=== PATIENT | female | born 1965 | race Caucasian/White ===

== ENCOUNTER 2021-09-13 09:55 | Outpatient (CLI) | payer MEDICARE, MEDICAID ==
[2021-09-13 11:15] LABS: BASOPHILS % (AUTO) 0.4 % (0-1); EOSINOPHILS # (AUTO) 0.1 X10'3 (0-0.9); EOSINOPHILS % (AUTO) 1.2 % (0-6); HEMATOCRIT 44.1 % (35.0-45.0); HEMOGLOBIN 15.1 g/dl (12.0-16.0); LYMPHOCYTES # (AUTO) 1.3 X10'3 (1.1-4.8); LYMPHOCYTES % (AUTO) 20.1 % (21-51); MEAN CORPUSCULAR HEMOGLOBIN 32.2 PG (27.0-31.0); MEAN CORPUSCULAR HGB CONC 34.3 g/dL (33.0-36.5); MEAN CORPUSCULAR VOLUME 94.1 FL (78-98); MEAN PLATELET VOLUME 7.4 FL (7.4-10.4); MONOCYTES # (AUTO) 0.6 X10'3 (0-0.9); MONOCYTES % (AUTO) 9.4 % (2-12); NEUTROPHILS # (AUTO) 4.4 X10'3 (1.8-7.7); NEUTROPHILS % (AUTO) 68.9 % (42-75); PLATELET COUNT 324 X10'3 (140-440); RED BLOOD COUNT 4.69 X10'6 (4.20-5.60); RED CELL DISTRIBUTION WIDTH 13.7 % (11.5-14.5); WHITE BLOOD COUNT 6.4 X10'3 (4.5-11.0)
[2021-09-13 11:47] LABS: ALANINE AMINOTRANSFERASE 24 U/L (12-78); ALBUMIN 3.9 G/DL (3.4-5.0); ALKALINE PHOSPHATASE 70 IU/L (46-116); ANION GAP 8 (8-16); ASPARTATE AMINO TRANSFERASE 28 U/L (10-37); BILIRUBIN,TOTAL 0.4 MG/DL (0.1-1.0); BLOOD UREA NITROGEN 18 MG/DL (7-18); BUN/CREATININE RATIO 19.4 (6.6-38.0); C-REACTIVE PROTEIN 0.14 MG/DL (0.0-0.5); CHLORIDE 102 MMOL/L (99-107); CREATININE 0.93 MG/DL (0.40-0.90); GLUCOSE 95 MG/DL (70-104); SODIUM 141 MMOL/L (135-145); TOTAL CARBON DIOXIDE 31.2 MMOL/L (24-32); eGFR 63 ML/MIN
[2021-09-13 12:09] LABS: RHEUM FACTOR QUAL REFLEX TITER NEGATIVE (Neg)
[2021-09-14 12:27] LABS: HEPATITIS C ANTIBODY <0.1 s/co ratio (0.0-0.9)
[2021-09-15 12:20] LABS: ANTINUCLEAR ANTIBODIES Negative (Negative)
== END 2021-09-13 23:59 | disposition home or self-care (01) ==
LOC: LAB 09:55
PROVIDERS: ATTEND Nurse Practitioner Family
DX: M17.0 Bilateral primary osteoarthritis of knee (principal); M25.50 Pain in unspecified joint; M54.50 Low back pain, unspecified; M25.559 Pain in unspecified hip; M54.2 Cervicalgia
CPT/HCPCS: 36415; 73564; 80053; 84439; 84443; 85025; 85651; 86038; 86140; 86200; 86430; 86803

== ENCOUNTER 2021-12-20 08:57 | Inpatient (IN) | payer MEDICARE, MEDICAID ==
[2021-12-12 16:34] LABS: BASOPHILS % (AUTO) 0.4 % (0-1); EOSINOPHILS # (AUTO) 0.1 X10'3 (0-0.9); EOSINOPHILS % (AUTO) 0.9 % (0-6); LYMPHOCYTES # (AUTO) 1.6 X10'3 (1.1-4.8); LYMPHOCYTES % (AUTO) 24.4 % (21-51); MEAN CORPUSCULAR HEMOGLOBIN 30.5 PG (27.0-31.0); MEAN CORPUSCULAR HGB CONC 32.9 g/dL (33.0-36.5); MEAN CORPUSCULAR VOLUME 92.5 FL (78-98); MEAN PLATELET VOLUME 7.8 FL (7.4-10.4); MONOCYTES # (AUTO) 0.6 X10'3 (0-0.9); MONOCYTES % (AUTO) 9.7 % (2-12); NEUTROPHILS # (AUTO) 4.3 X10'3 (1.8-7.7); NEUTROPHILS % (AUTO) 64.6 % (42-75); PRE OP HEMATOCRIT 44.6 % (35.0-45.0); PRE OP HEMOGLOBIN 14.7 g/dL (12.0-16.0); PRE OP PLATELET COUNT 300 X10'3 (140-440); RED BLOOD COUNT 4.83 X10'6 (4.20-5.60); RED CELL DISTRIBUTION WIDTH 13.2 % (11.5-14.5)
[2021-12-12 16:46] LABS: ALBUMIN 3.9 G/DL (3.4-5.0); ALKALINE PHOSPHATASE 82 IU/L (46-116); BLOOD UREA NITROGEN 8 MG/DL (7-18); BUN/CREATININE RATIO 11.6 (6.6-38.0); CALCIUM 9.1 MG/DL (8.5-10.1); CHLORIDE 102 MMOL/L (99-107); CREATININE 0.69 MG/DL (0.40-0.90); PRE OP ANION GAP 8 (8-16); PRE OP AST 61 U/L (10-37); PRE OP BILIRUB, TOTAL 0.4 MG/DL (0.0-1.0); PRE OP GLUCOSE 90 MG/DL (70-104); PRE OP POTASSIUM 4.1 MMOL/L (3.4-5.1); PRE OP SODIUM 140 MMOL/L (135-145); TOTAL PROTEIN 7.7 G/DL (6.4-8.2); eGFR 89 ML/MIN
[2021-12-12 16:48] LABS: PRE OP ALT 100 U/L (30-65)
[~2021-12-20] VITALS: Ht 144.8 cm; Wt 92.5 kg
[2021-12-20] VITALS (21 sets, daily range): BP systolic 116–163; BP diastolic 52–98
[2021-12-20] MEDS: ringers solution, lacted 1,000 ML IV SCH ×2 (05:00→23:25)
[~2021-12-20 08:57] MED LIST: ALBU18HF2 PO; BENZ1TAB7 PO; BUPR-353 PO; CLON1TAB13 PO; CYCL-1 PO; DEXL60CA3 PO; DOCU-342 PO; EPIN0.3P3 SQ; FLUT16SP26 BOTHNARES; FURO-150 PO; GABAPENTIN PO; HYDR-3972 PO; IBUP-1985 PO; IPRA3AMP9; KETO15CR2 TOP; LORA10TA7 PO; LURA80TA2 PO; MONT-40 PO; POTA8CAP20 PO; PSEU-259 PO; SENN-263 PO; SUMA100T16; THYR120T2 PO; THYR30TA2 PO; TRAZ-256 PO; cefazolin/dext.iso 2gm/50ml IV ONE; famotidine 20mg tablet PO ONE; sevoflurane 250ml liquid IH ONE; tetracaine 1% (10mg/ml) pres. free inj. ONE; tranexamic acid inj. 1,000 MG in 0.7% saline 100 ML PMX IV ONE; vancomycin 1,500 MG in NS 300ml IV soln IV ONE
[2021-12-20] MEDS ORDERED: ROPIVAcaine 0.5% (5mg/ml) 30ml vial ONE ×2 (09:19→13:14)
[2021-12-20] MEDS ORDERED: cloNIDine hcl/PF 100mcg/ml inj ONE (09:19)
[2021-12-20] MEDS ORDERED: ketorolac trometh. 30mg/ml inj. ONE (09:19)
[2021-12-20] MEDS ORDERED: BUPR300T53 PO (09:53)
[2021-12-20] MEDS ORDERED: MIDAZolam 1mg/ml 10ml vial ONE (11:02)
[2021-12-20] MEDS ORDERED: FENTANYL CITRATE/PF 50 MCG/1 ML VIAL ONE (11:02)
[2021-12-20] MEDS ORDERED: vancomycin 1,000mg inj ONE (11:48)
[2021-12-20] MEDS ORDERED: ringers solution, lacted 1,000 ML IV SCH (12:20)
[2021-12-20] MEDS ORDERED: meperidine/PF 25mg/ml syringe IV PRN ×3 (12:20)
[2021-12-20] MEDS ORDERED: HYDROmorphone/PF 0.2 MG/ML SYRINGE IV PRN ×2 (12:20)
[2021-12-20] MEDS ORDERED: ondansetron/PF 4mg/2ml inj IV PRN ×2 (12:20→14:30)
[2021-12-20] MEDS ORDERED: propofol inj 20 ML IV ONE (13:15)
--- NOTE | 2021-12-20 14:02 | NUR ---
Received from OR via [facility] , accompanied by Anesthesiologist JEANNE and report given by Anesthesiolgist. PATIENT WITH 20G PIV IN LEFT HAND RUNNING LR AT 20. DENIES PAIN AT THIS TIME. RIGHT FOOT WITH SPLINT ON , TOES EXPOSED. + POPLITEAL PULSE PRESENT. PATIENT WITH 10L MASK ON WITH 100% SATURATIONS. Addendum: 12/20/21 at 1419 by Mario Alberto Rolle RN, RN Amended: Links added.
--- NOTE | 2021-12-20 14:04 | NUR ---
Received from OR via BED, accompanied by Anesthesiologist DR GARCIA and report given by Anesthesiologist. PT DROWSY, DENIES PAIN, LEFT KNEE W/KNEE WRAP, ICE PACK, DRSHubert CDI. [place] CATHETER TO GRAVITY DRAINAGE W/YELLOW URINE IN DRAINAGE BAG. PT W/SAB DERMATOME LEVEL T-7, DR GARCIA AWARE. PT W/O DISTRESS. Addendum: 12/20/21 at 1513 by Dulce Odom RN Amended: Links added.
[2021-12-20] MEDS ORDERED: ipratropium/albuterol 3ml nebule IH PRN (14:25)
[2021-12-20] MEDS ORDERED: clonazePAM 1mg tablet PO PRN (14:25)
[2021-12-20] MEDS ORDERED: non-formulary drug (Bupropion Hcl (Wellbutrin Xl) 1 TABLET) PO PRN (14:25)
[2021-12-20] MEDS ORDERED: magnesium hydroxide 30ml (MOM) UD suspension PO PRN (14:30)
[2021-12-20] MEDS ORDERED: bisacodyl 10mg suppository rectal RC PRN (14:30)
[2021-12-20] MEDS ORDERED: HYDROmorphone inj. 0.5 MG/0.5 ML DISP.SYRIN IV PRN (14:30)
[2021-12-20] MEDS ORDERED: HYDROmorphone 1 mg/ml syringe IV PRN (14:30)
[2021-12-20] MEDS ORDERED: HYDROcodone/acetaminophen 10/325mg tab PO PRN (14:30)
[2021-12-20] MEDS ORDERED: diphenhydrAMINE 25mg capsule PO PRN (14:30)
[2021-12-20] MEDS ORDERED: acetaminophen 325mg tablet PO PRN (14:30)
[2021-12-20] MEDS ORDERED: albuterol 2.5 MG/3 ML nebule NEB ONE (14:40)
[2021-12-20] MEDS ORDERED: albuterol 2.5 MG/3 ML nebule NEB PRN (14:45)
--- NOTE | 2021-12-20 15:44 | NUR ---
Report called to receiving nurse. Transferred via BED, 1 BAG OF PT Belongings SENT W/PT TO ROOM 355A. RECEIVING RN AT BEDSIDE TO RECEIVE PT, BLL, CALL LIGHT GIVEN, SIDE RAILS UP X 2, DERMATOME LEVEL T-11-12. Special Issues communicated to receiving nurse. YES. Addendum: 12/20/21 at 1556 by Dulce Odom RN Amended: Links added.
[2021-12-20] MEDS: ceFAZolin/D5W- 1GM premix 50 ML IV SCH ×2 (16:34→23:37)
[2021-12-20] MEDS: potassium Cl 20mEq in NS 1,000 ML IV SCH (16:34)
--- NOTE | 2021-12-20 18:22 | NUR ---
Problems reprioritized. Patient report given, questions answered & plan of care reviewed with Prudence RN.
--- NOTE | 2021-12-20 18:51 | NUR ---
Patient in room [facility]. I have received report from FERNANDA HOWARD and had the opportunity to ask questions and assume patient care.
[2021-12-20] MEDS ORDERED: vancomycin/NS 1 GM ADD-VANTAGE 250 ML IV SCH (20:00)
[2021-12-20] MEDS: traZODone 50mg tablet PO PRN (21:11)
[2021-12-20] MEDS: sennosides 8.6mg tablet PO SCH (21:12)
[2021-12-20] MEDS: furosemide 20MG tablet PO SCH (21:12)
[2021-12-20] MEDS: gabapentin 300mg capsule PO SCH (21:12)
[2021-12-20] MEDS: cyclobenzaprine 10mg tablet PO SCH (21:12)
[2021-12-20] MEDS: potassium chloride 8mEq ER tablet PO SCH (21:12)
[2021-12-20] MEDS: montelukast 10mg tablet PO SCH (21:13)
[2021-12-20] MEDS: benztropine 1mg tablet PO SCH (21:13)
[2021-12-20] MEDS: buPROPion SR 150mg tablet PO SCH (21:13)
[2021-12-20] MEDS: HYDROcodone/acetaminophen 10/325mg tab PO PRN (23:24)
[2021-12-21] VITALS: BP 110/56
[2021-12-21] MEDS: benztropine 1mg tablet PO SCH ×4 (02:40→20:39)
[2021-12-21] MEDS: potassium Cl 20mEq in NS 1,000 ML IV SCH ×3 (03:50→20:38)
--- NOTE | 2021-12-21 06:17 | NUR ---
Problems reprioritized. Patient report given, questions answered & plan of care reviewed with FERNANDA HOWARD.
[2021-12-21 06:47] LABS: BASOPHILS % (AUTO) 0.2 % (0-1); EOSINOPHILS % (AUTO) 0.6 % (0-6); HEMATOCRIT 36.9 % (35.0-45.0); HEMOGLOBIN 12.1 g/dl (12.0-16.0); LYMPHOCYTES # (AUTO) 0.5 X10'3 (1.1-4.8); LYMPHOCYTES % (AUTO) 5.6 % (21-51); MEAN CORPUSCULAR HEMOGLOBIN 30.4 PG (27.0-31.0); MEAN CORPUSCULAR HGB CONC 32.8 g/dL (33.0-36.5); MEAN CORPUSCULAR VOLUME 92.6 FL (78-98); MONOCYTES # (AUTO) 1.1 X10'3 (0-0.9); MONOCYTES % (AUTO) 12.9 % (2-12); NEUTROPHILS % (AUTO) 80.7 % (42-75); PLATELET COUNT 242 X10'3 (140-440); RED BLOOD COUNT 3.99 X10'6 (4.20-5.60); RED CELL DISTRIBUTION WIDTH 13.3 % (11.5-14.5); WHITE BLOOD COUNT 8.7 X10'3 (4.5-11.0)
[2021-12-21] MEDS: cyclobenzaprine 10mg tablet PO SCH ×3 (07:26→20:38)
[2021-12-21] MEDS: pantoprazole 40mg Tablet.DR PO SCH (07:26)
[2021-12-21] MEDS: docusate sod 100mg capsule PO SCH (07:27)
[2021-12-21] MEDS: potassium chloride 8mEq ER tablet PO SCH ×2 (07:27→20:39)
[2021-12-21] MEDS: furosemide 20MG tablet PO SCH ×2 (07:27→20:40)
[2021-12-21] MEDS: thyroid, pork 30mg tablet PO SCH (07:28)
[2021-12-21] MEDS: gabapentin 300mg capsule PO SCH ×3 (07:28→20:38)
[2021-12-21] MEDS: buPROPion SR 150mg tablet PO SCH ×2 (07:28→20:39)
[2021-12-21] MEDS: HYDROcodone/acetaminophen 10/325mg tab PO PRN (07:29)
[2021-12-21] MEDS ORDERED: lurasidone 60mg tablet PO SCH (07:30)
[2021-12-21] MEDS: lurasidone 20mg tablet PO SCH (07:30)
[2021-12-21 07:56] LABS: ALANINE AMINOTRANSFERASE 37 U/L (12-78); ALBUMIN 2.8 G/DL (3.4-5.0); ALBUMIN/GLOBULIN RATIO 0.9 (1.1-1.5); ALKALINE PHOSPHATASE 61 IU/L (46-116); ANION GAP 4 (8-16); ASPARTATE AMINO TRANSFERASE 38 U/L (10-37); BILIRUBIN,TOTAL 0.4 MG/DL (0.1-1.0); BLOOD UREA NITROGEN 13 MG/DL (7-18); BUN/CREATININE RATIO 15.5 (6.6-38.0); CALCIUM 7.8 MG/DL (8.5-10.1); CHLORIDE 107 MMOL/L (99-107); CREATININE 0.84 MG/DL (0.40-0.90); GLUCOSE 137 MG/DL (70-104); POTASSIUM 4.9 MMOL/L (3.5-5.1); SODIUM 138 MMOL/L (135-145); TOTAL CARBON DIOXIDE 26.7 MMOL/L (24-32); TOTAL PROTEIN 5.9 G/DL (6.4-8.2); eGFR 71 ML/MIN
[2021-12-21] MEDS ORDERED: sennosides 8.6mg tablet PO SCH (08:00)
[2021-12-21] MEDS ORDERED: THYROID PO SCH (08:00)
[2021-12-21] MEDS ORDERED: non-formulary drug (Lurasidone HCl (Latuda) 1 TAB) PO SCH (08:00)
[2021-12-21 11:00] VITALS: BP 109/49
--- NOTE | 2021-12-21 12:20 | NUR ---
Dr. Salamanca was paged to inform about patient's oxygen saturation dropping to 50s and heart rate in 120s during routine vital sign check. Patient had been room air since last night. Hourly rounds had been done and patient had been alert and oriented. She is now on 6L NC, o2 is in mid 90s and heart rate is coming down to 90s low 100s. Dr. Salamanca says he will assign hospitalist to patient.
--- NOTE | 2021-12-21 12:21 | NUR ---
Joint Surgery Consult: Pt s/p L knee surgery this admit per EMR. Pt seen by CARLOS for written/verbal high protein diet ed w/ RD contact information provided. CARLOS encouraged pt to contact dietitian's office if further questions/concerns. Addendum: 12/21/21 at [address] A [address] Amended: Links added.
[2021-12-21 18:00] VITALS: BP 107/50
--- NOTE | 2021-12-21 18:43 | NUR ---
Problems reprioritized. Patient report given, questions answered & plan of care reviewed with Prudence RN.
--- NOTE | 2021-12-21 19:00 | NUR ---
Patient in room [facility]. I have received report from IZAIAH HOWARD and had the opportunity to ask questions and assume patient care.
[2021-12-21] MEDS ORDERED: potassium CL 10mEq/100ml bag 100 ML IV PRN (19:35)
[2021-12-21] MEDS ORDERED: magnesium 4gm in 100ml NS 100 ML IV PRN (19:35)
[2021-12-21] MEDS ORDERED: potassium Cl 20 mEq SR tablet PO PRN ×2 (19:35)
[2021-12-21] MEDS ORDERED: magnesium Cl slow-release 64mg tablet PO PRN (19:35)
[2021-12-21] MEDS ORDERED: methylPREDNISolone sod succ 125mg/2ml vial IV ONE (19:35)
[2021-12-21] MEDS ORDERED: PERFLUTREN PROTEIN-A MICROSPHR (Optison) 0.22 MG/ML 3ML VIAL IV PRN (19:40)
[2021-12-21] MEDS: K and/or MAG REPLACEMENT MC SCH (20:00)
[2021-12-21] MEDS: methylPREDNISolone sod succ/PF 40mg inj. IV SCH (20:38)
[2021-12-21] MEDS: lurasidone 60mg tablet PO SCH (20:39)
[2021-12-21] MEDS: montelukast 10mg tablet PO SCH (20:39)
[2021-12-21] MEDS: sennosides 8.6mg tablet PO SCH (20:40)
[2021-12-21] MEDS: azithromycin 250mg tablet PO SCH (20:46)
[2021-12-21] MEDS: ipratropium/albuterol 3ml nebule NEB SCH (23:30)
[2021-12-22 00:46] VITALS: BP 147/57
[2021-12-22] MEDS: methylPREDNISolone sod succ/PF 40mg inj. IV SCH ×4 (02:19→20:12)
[2021-12-22] MEDS: benztropine 1mg tablet PO SCH ×4 (02:19→20:15)
[2021-12-22] MEDS: ipratropium/albuterol 3ml nebule NEB SCH ×6 (03:00→23:00)
--- NOTE | 2021-12-22 05:40 | NUR ---
FC DISCONTINUED AT 0500
--- NOTE | 2021-12-22 06:29 | NUR ---
Problems reprioritized. Patient report given, questions answered & plan of care reviewed with DENNIS HOWARD.
--- NOTE | 2021-12-22 06:37 | NUR ---
Patient in room [facility]. I have received report from ANITA Saleem and had the opportunity to ask questions and assume patient care.
[2021-12-22 07:00] VITALS: BP 148/86
[2021-12-22 07:07] LABS: BASOPHILS % (AUTO) 0.1 % (0-1); EOSINOPHILS % (AUTO) 0 % (0-6); HEMATOCRIT 37.2 % (35.0-45.0); HEMOGLOBIN 12.4 g/dl (12.0-16.0); LYMPHOCYTES # (AUTO) 0.3 X10'3 (1.1-4.8); LYMPHOCYTES % (AUTO) 3.2 % (21-51); MEAN CORPUSCULAR HEMOGLOBIN 31.3 PG (27.0-31.0); MEAN CORPUSCULAR HGB CONC 33.3 g/dL (33.0-36.5); MEAN PLATELET VOLUME 8.4 FL (7.4-10.4); MONOCYTES # (AUTO) 0.4 X10'3 (0-0.9); NEUTROPHILS # (AUTO) 9.5 X10'3 (1.8-7.7); NEUTROPHILS % (AUTO) 92.7 % (42-75); PLATELET COUNT 245 X10'3 (140-440); RED BLOOD COUNT 3.96 X10'6 (4.20-5.60); WHITE BLOOD COUNT 10.3 X10'3 (4.5-11.0)
[2021-12-22 07:25] LABS: ALANINE AMINOTRANSFERASE 174 U/L (12-78); ALBUMIN/GLOBULIN RATIO 0.8 (1.1-1.5); ALKALINE PHOSPHATASE 87 IU/L (46-116); ANION GAP 7 (8-16); ASPARTATE AMINO TRANSFERASE 108 U/L (10-37); BILIRUBIN,TOTAL 0.3 MG/DL (0.1-1.0); BLOOD UREA NITROGEN 10 MG/DL (7-18); BUN/CREATININE RATIO 9.7 (6.6-38.0); CALCIUM 8.6 MG/DL (8.5-10.1); CHLORIDE 104 MMOL/L (99-107); CREATININE 1.03 MG/DL (0.40-0.90); GLUCOSE 159 MG/DL (70-104); MAGNESIUM 1.6 MG/DL (1.5-2.4); PHOSPHORUS 2.6 MG/DL (2.3-4.5); POTASSIUM 4.2 MMOL/L (3.5-5.1); SODIUM 141 MMOL/L (135-145); TOTAL CARBON DIOXIDE 30.3 MMOL/L (24-32); TOTAL PROTEIN 6.9 G/DL (6.4-8.2); eGFR 56 ML/MIN
[2021-12-22] MEDS: lurasidone 20mg tablet PO SCH (07:30)
[2021-12-22] MEDS: K and/or MAG REPLACEMENT MC SCH ×2 (08:00→19:53)
[2021-12-22] MEDS: thyroid, pork 30mg tablet PO SCH (10:07)
[2021-12-22] MEDS: gabapentin 300mg capsule PO SCH ×2 (10:07→12:23)
[2021-12-22] MEDS: buPROPion SR 150mg tablet PO SCH ×2 (10:07→20:15)
[2021-12-22] MEDS: docusate sod 100mg capsule PO SCH (10:08)
[2021-12-22] MEDS: pantoprazole 40mg Tablet.DR PO SCH (10:08)
[2021-12-22] MEDS: potassium chloride 8mEq ER tablet PO SCH ×2 (10:08→20:13)
[2021-12-22] MEDS: azithromycin 250mg tablet PO SCH (10:08)
[2021-12-22] MEDS: furosemide 20MG tablet PO SCH ×2 (10:08→20:15)
[2021-12-22] MEDS: cyclobenzaprine 10mg tablet PO SCH ×2 (10:08→12:23)
[2021-12-22 11:00] VITALS: BP 149/89
[2021-12-22] MEDS ORDERED: iohexol 350MG/ML 100ml bottle IV ONE (11:03)
--- NOTE | 2021-12-22 18:37 | NUR ---
Patient in room [facility]. I have received report from DENNIS HOWARD and had the opportunity to ask questions and assume patient care.
--- NOTE | 2021-12-22 18:56 | NUR ---
Problems reprioritized. Patient report given, questions answered & plan of care reviewed with ANITA Saleem.
[2021-12-22 19:00] VITALS: BP 138/95
[2021-12-22] MEDS: heparin, porcine 5000 units/ml vial SQ SCH (20:12)
[2021-12-22] MEDS: lurasidone 60mg tablet PO SCH (20:13)
[2021-12-22] MEDS: sennosides 8.6mg tablet PO SCH (20:14)
[2021-12-22] MEDS: montelukast 10mg tablet PO SCH (20:14)
[2021-12-23 00:53] VITALS: BP 138/77
--- NOTE | 2021-12-23 01:29 | NUR ---
At 1999 last night, patients' called in to say that his has been in pain for 2 hours. I informed him that Dr Salamanca was assessing his just half an hour ago and that she did not complain of any pain at this time. When I went down to the room to assess patient, she stated that her pain was an 8/10. Called Dr Salamanca and got a new order for norco10/325mg q4hr prn pain.
[2021-12-23] MEDS: benztropine 1mg tablet PO SCH ×4 (02:31→20:15)
[2021-12-23] MEDS: ipratropium/albuterol 3ml nebule NEB SCH ×5 (03:00→23:00)
--- NOTE | 2021-12-23 06:19 | NUR ---
Problems reprioritized. Patient report given, questions answered & plan of care reviewed with DENNIS HOWARD.
--- NOTE | 2021-12-23 06:45 | NUR ---
Patient in room [facility]. I have received report from ANITA Saleem and had the opportunity to ask questions and assume patient care.
[2021-12-23 07:00] VITALS: BP 116/71
[2021-12-23] MEDS: potassium chloride 8mEq ER tablet PO SCH ×2 (07:53→20:15)
[2021-12-23] MEDS: methylPREDNISolone sod succ/PF 40mg inj. IV SCH ×2 (07:53→20:18)
[2021-12-23] MEDS: heparin, porcine 5000 units/ml vial SQ SCH ×2 (07:53→20:19)
[2021-12-23] MEDS: lurasidone 20mg tablet PO SCH (07:53)
[2021-12-23] MEDS: buPROPion SR 150mg tablet PO SCH ×2 (07:53→20:17)
[2021-12-23] MEDS: pantoprazole 40mg Tablet.DR PO SCH (07:54)
[2021-12-23] MEDS: thyroid, pork 30mg tablet PO SCH (07:54)
[2021-12-23] MEDS: furosemide 20MG tablet PO SCH ×2 (07:54→20:16)
[2021-12-23] MEDS: azithromycin 250mg tablet PO SCH (07:54)
[2021-12-23] MEDS: docusate sod 100mg capsule PO SCH (07:54)
[2021-12-23] MEDS: K and/or MAG REPLACEMENT MC SCH ×2 (08:00→19:51)
[2021-12-23 08:44] LABS: ALANINE AMINOTRANSFERASE 97 U/L (12-78); ALBUMIN 2.9 G/DL (3.4-5.0); ALBUMIN/GLOBULIN RATIO 0.7 (1.1-1.5); ALKALINE PHOSPHATASE 69 IU/L (46-116); ANION GAP 8 (8-16); ASPARTATE AMINO TRANSFERASE 31 U/L (10-37); BILIRUBIN,TOTAL 0.2 MG/DL (0.1-1.0); BLOOD UREA NITROGEN 16 MG/DL (7-18); BUN/CREATININE RATIO 16.8 (6.6-38.0); CALCIUM 9.2 MG/DL (8.5-10.1); CHLORIDE 99 MMOL/L (99-107); CREATININE 0.95 MG/DL (0.40-0.90); GLUCOSE 116 MG/DL (70-104); MAGNESIUM 1.7 MG/DL (1.5-2.4); PHOSPHORUS 3.8 MG/DL (2.3-4.5); SODIUM 140 MMOL/L (135-145); TOTAL CARBON DIOXIDE 32.6 MMOL/L (24-32); TOTAL PROTEIN 6.8 G/DL (6.4-8.2); eGFR 61 ML/MIN
[2021-12-23 08:52] LABS: BASOPHILS % (AUTO) 0 % (0-1); EOSINOPHILS % (AUTO) 0 % (0-6); HEMATOCRIT 35.4 % (35.0-45.0); HEMOGLOBIN 11.7 g/dl (12.0-16.0); LYMPHOCYTES % (AUTO) 7.1 % (21-51); MEAN CORPUSCULAR HEMOGLOBIN 30.9 PG (27.0-31.0); MEAN CORPUSCULAR VOLUME 93.6 FL (78-98); MEAN PLATELET VOLUME 8.3 FL (7.4-10.4); MONOCYTES # (AUTO) 1.7 X10'3 (0-0.9); MONOCYTES % (AUTO) 11.8 % (2-12); NEUTROPHILS # (AUTO) 11.7 X10'3 (1.8-7.7); NEUTROPHILS % (AUTO) 81.1 % (42-75); PLATELET COUNT 301 X10'3 (140-440); RED BLOOD COUNT 3.78 X10'6 (4.20-5.60); RED CELL DISTRIBUTION WIDTH 13.6 % (11.5-14.5); WHITE BLOOD COUNT 14.4 X10'3 (4.5-11.0)
[2021-12-23 11:00] VITALS: BP 127/61
--- NOTE | 2021-12-23 18:29 | NUR ---
Problems reprioritized. Patient report given, questions answered & plan of care reviewed with ANITA Reid.
--- NOTE | 2021-12-23 18:30 | NUR ---
Patient in room [facility]. I have received report from Abi HOWARD and had the opportunity to ask questions and assume patient care.
[2021-12-23 19:00] VITALS: BP 129/69
[2021-12-23] MEDS: HYDROcodone/acetaminophen 10/325mg tab PO PRN (20:15)
[2021-12-23] MEDS: montelukast 10mg tablet PO SCH (20:17)
[2021-12-23] MEDS: sennosides 8.6mg tablet PO SCH (20:17)
[2021-12-23] MEDS: lurasidone 60mg tablet PO SCH (20:29)
[2021-12-23] MEDS: traZODone 50mg tablet PO PRN (22:17)
[2021-12-24] VITALS: BP 118/54
[2021-12-24] MEDS: ipratropium/albuterol 3ml nebule NEB SCH ×2 (02:52→08:20)
[2021-12-24] MEDS: benztropine 1mg tablet PO SCH ×2 (03:07→07:12)
[2021-12-24] MEDS: HYDROcodone/acetaminophen 10/325mg tab PO PRN (05:16)
--- NOTE | 2021-12-24 06:30 | NUR ---
Problems reprioritized. Patient report given, questions answered & plan of care reviewed with Abi HOWARD.
[2021-12-24] MEDS: docusate sod 100mg capsule PO SCH (07:12)
[2021-12-24] MEDS: pantoprazole 40mg Tablet.DR PO SCH (07:12)
[2021-12-24] MEDS: thyroid, pork 30mg tablet PO SCH (07:12)
[2021-12-24] MEDS: buPROPion SR 150mg tablet PO SCH (07:12)
[2021-12-24] MEDS: potassium chloride 8mEq ER tablet PO SCH (07:12)
[2021-12-24] MEDS: furosemide 20MG tablet PO SCH (07:14)
[2021-12-24] MEDS: methylPREDNISolone sod succ/PF 40mg inj. IV SCH (07:15)
[2021-12-24] MEDS: heparin, porcine 5000 units/ml vial SQ SCH (07:15)
[2021-12-24] MEDS: lurasidone 20mg tablet PO SCH (07:15)
[2021-12-24] MEDS: K and/or MAG REPLACEMENT MC SCH (07:16)
[2021-12-24 07:26] VITALS: BP 120/72
[2021-12-24 07:44] VITALS: BP 120/72
[2021-12-24 07:53] LABS: MAGNESIUM 2.1 MG/DL (1.5-2.4)
--- NOTE | 2021-12-24 08:37 | NUR ---
Need to clarify some issues before discharge. Called [employer] and left a message with contact info.
--- NOTE | 2021-12-24 09:34 | NUR ---
Called [facility] office to try and reach him. Asked his office if they ordered pain prescription and asa for pt. They said no. Pt. also has not been provided a walker. Pt. states she has a walker at home already though. Office gave number for [facility] [place]. Called and spoke to Jadyn in the OR. He said pt. has been given enough pain medication to last until Friday which is when he will f/u with her. AMANDO dress battery pack has been ripped off of bandage and can not be located. Surgeon made aware. He said to place an island dressing on with the knee bent. Pt. states she can use [employer] [facility] to get home at that she will arrange it herself.
--- NOTE | 2021-12-24 10:22 | NUR ---
UNIQUE vape pens at charge desk and thc gummies and home meds from pharmacy returned to pt. educated on fact that she can not use in hospital.
--- NOTE | 2021-12-24 10:29 | NUR ---
DISCHARGE NOTE: Reviewed all discharge paperwork with pt. Reviewed this information: Keep your current island dressing intact. Wait to shower until your follow up appointment. Continue weight bearing as tolerated. Take short walks often. Continue working on Flexion and Extension of your knee as educated. Dr. Salamanca will arrange outpatient physical therapy for you at your follow up appointment on Friday. Call [phone] to clarify or change your appointment today when you go home. Continue to use your inspiratory spirometer twice daily for two weeks. Start aspirin 81mg. Take it twice a day- one in the morning and one at night. Take with food and do not take any other NSAIDS with the aspirin. Be sure to take home any cold therapy packs you used here in the hospital. Take your medications as prearranged and directed. Dr. Salamanca states you have enough pain medication to last until Friday. Follow up with Dr. Salamanca as scheduled. Reviewed this multiple times as pt. was slow to understand and forgetful. IV DC'd, cannula intact, no s/sx bleeding, pressure bandage applied. Pt. received home medications. Redressed knee incision. Extra bandages provided, but pt advised not to remove bandage until f/u appointment as she has several dogs at home. Recommended only "bed baths" until her f/u evelia. as island drsg not waterproof like AMANDO dressing. Pt. states she has a walker at home. Her [place] is expecting her. Ride arranged with [employer]. Pt. wheeled down in a w/c and [employer] was downstairs in a Prius waiting to take her home to [place].
== END 2021-12-24 10:20 | disposition home or self-care (01) | DRG 469 ==
LOC: PAS 08:57 → SUR 3N 14:31
PROVIDERS: ADMIT Orthopaedic Surgery; ATTEND Orthopaedic Surgery
PROC: 3E0T3BZ Introduction of Anesthetic Agent into Peripheral Nerves and Plexi, Percutaneous Approach (ICD-10-PCS; 2021-12-20)
PROC: 3E0T33Z Introduction of Anti-inflammatory into Peripheral Nerves and Plexi, Percutaneous Approach (ICD-10-PCS; 2021-12-20)
PROC: 0SRD0J9 Replacement of Left Knee Joint with Synthetic Substitute, Cemented, Open Approach (ICD-10-PCS; principal; 2021-12-20 10:54)
PROC: B32T1ZZ Computerized Tomography (CT Scan) of Left Pulmonary Artery using Low Osmolar Contrast (ICD-10-PCS; 2021-12-22)
PROC: B3201ZZ Computerized Tomography (CT Scan) of Thoracic Aorta using Low Osmolar Contrast (ICD-10-PCS; 2021-12-22)
PROC: B32S1ZZ Computerized Tomography (CT Scan) of Right Pulmonary Artery using Low Osmolar Contrast (ICD-10-PCS; 2021-12-22)
DX: M17.12 Unilateral primary osteoarthritis, left knee (principal); J96.00 Acute respiratory failure, unspecified whether with hypoxia or hypercapnia; J44.1 Chronic obstructive pulmonary disease with (acute) exacerbation; Z68.41 Body mass index [BMI] 40.0-44.9, adult; K21.9 Gastro-esophageal reflux disease without esophagitis; F41.8 Other specified anxiety disorders; R41.0 Disorientation, unspecified; E66.9 Obesity, unspecified; F43.10 Post-traumatic stress disorder, unspecified; E03.9 Hypothyroidism, unspecified; F20.9 Schizophrenia, unspecified; R40.0 Somnolence
CPT/HCPCS: 36415; 70450; 71045; 71275; 80053; 82948; 83735; 83880; 84100; 84443; 85025; 86885; 86900; 86901; 86920; 87081; 93005; 93308; 94640; 94760; 97116; 97161; 97530; A6455; A7000; A9272; C1713; C1758; C1776; G0378; J0690; J0735; J1170; J1644; J1885; J2250; J2704; J2795; J2920; J2930; J3010; J3370; J3480; J3490; J7040; J7120; Q9967; U0003; U0005